=== PATIENT | female | born 1940 | race Caucasian/White ===

== ENCOUNTER 2017-02-22 07:47 | Day surgery (SDC) | payer MEDICARE, OTHER ==
[2017-02-16 10:33] LABS: ABSOLUTE EOSINOPHILS # (AUTO) 0.2 10^3/uL (0.0-0.6); ABSOLUTE LYMPHOCYTES (AUTO) 0.7 10^3/uL (0.5-4.7); ABSOLUTE MONOCYTES (AUTO) 0.6 10^3/uL (0.1-1.4); ABSOLUTE NEUT (AUTO) 4.7 10^3/uL (1.7-8.2); BASOPHILS % (AUTO) 0.7 % (0-2); EOSINOPHILS % (AUTO) 3.8 % (0-6); HEMOGLOBIN 12.9 g/dL (12.0-15.5); HGB HCT DIFFERENCE 0.7; LYMPHOCYTES % (AUTO) 11.7 % (13-45); MEAN CORPUSCULAR HEMOGLOBIN 30.3 pg (27.0-33.4); MEAN CORPUSCULAR VOLUME 89 fl (80-97); MONOCYTES % (AUTO) 9.3 % (3-13); RED BLOOD COUNT 4.26 10^6/uL (3.72-5.28); RED CELL DISTRIBUTION WIDTH 14.4 % (11.5-14.0); SEGMENTED NEUTROPHILS % (AUTO) 74.5 % (42-78); WHITE BLOOD COUNT 6.3 10^3/uL (4.0-10.5)
[2017-02-16 10:41] LABS: PARTIAL THROMBOPLASTIN TIME 27.4 SEC (23.5-35.8)
--- NOTE | 2017-02-17 00:08 | EKG REPORT ---
SEVERITY:- ABNORMAL ECG - SINUS RHYTHM FIRST DEGREE AV BLOCK : Confirmed by: Hilda Dey 17-Feb-2017 00:07:48
[2017-02-17 15:40] LABS: APPEARANCE,URINE CLOUDY; BILIRUBIN,URINE NEGATIVE (NEGATIVE); GLUCOSE, URINE NEGATIVE (NEGATIVE); KETONES,URINE NEGATIVE (NEGATIVE); LEUKOCYTE ESTERASE,URINE SMALL (NEGATIVE); NITRITE,URINE NEGATIVE (NEGATIVE); PROTEIN,URINE NEGATIVE (NEGATIVE); URINE SPECIFIC GRAVITY 1.011; UROBILINOGEN,URINE NEGATIVE mg/dL (<2.0)
[~2017-02-22 07:47] MED LIST: CEFAZOLIN 1 GM/D5W RTU 1 GM/50 ML RTUPB IV PRN; LACTATED RINGERS 1000 ML IV PRN
[2017-02-22] MEDS ORDERED: LIDOCAINE 1% INJ-PF (10 MG/ML) 30 ML SDV ONE (08:36)
[2017-02-22] MEDS ORDERED: TRIAMCINOLONE ACETONIDE INJ 40 MG/1 ML VIAL ONE ×2 (08:37)
[2017-02-22] MEDS ORDERED: BUPIVACAINE HCL 0.25 % INJ/PF (2.5 MG/1 ML) 30 ML VIAL ONE (08:37)
[2017-02-22] MEDS ORDERED: LIDOCAINE 2% INJ-PF (20 MG/ML) 10 ML AMPUL ONE (09:20)
[2017-02-22] MEDS ORDERED: KETAMINE HCL INJ 500 MG/10 ML VIAL ONE (09:20)
[2017-02-22] MEDS ORDERED: MIDAZOLAM 2 MG/2 ML INJ ONE (09:21)
[2017-02-22] MEDS ORDERED: FENTANYL CITRATE INJ/PF 100 MCG/2 ML AMPUL ONE (09:21)
[2017-02-22] MEDS ORDERED: ONDANSETRON HCL INJ/PF 4 MG/2 ML SDV ONE (09:21)
[2017-02-22] MEDS ORDERED: PROPOFOL INJ 200 MG/20 ML VIAL IV ONE (09:21)
[2017-02-22] MEDS ORDERED: BUPIVACAINE HCL 0.25% /EPINEPHRINE INJ/PF 30 ML SDV ONE (09:31)
[2017-02-22] MEDS ORDERED: METHYLPREDNISOLONE ACETATE INJ 40 MG/1 ML ML ONE (09:31)
[2017-02-22] MEDS ORDERED: FENTANYL CITRATE INJ/PF 100 MCG/2 ML AMPUL IV PRN ×3 (10:23)
[2017-02-22] MEDS ORDERED: DIPHENHYDRAMINE HCL 50 MG/ML VIAL IV PRN (10:23)
[2017-02-22] MEDS ORDERED: PROMETHAZINE HCL INJ 25 MG/1 ML VIAL IV PRN (10:23)
[2017-02-22] MEDS ORDERED: CEFAZOLIN INJ 1 GM VIAL ONE (10:55)
[2017-02-22] MEDS ORDERED: OXYCODONE-ACETAMINOPHEN 5-325 MG TABLET PO PRN (10:57)
[2017-02-22] MEDS: FENTANYL CITRATE INJ/PF 100 MCG/2 ML AMPUL ONE ×2 (11:01→11:11)
--- NOTE | 2017-02-22 11:18 | OPERATIVE REPORT E ---
Operative Report NAME: INES LONDONO : 1940 AGE: 76Y DATE OF SURGERY: 02/22/2017 ROOM: PREOPERATIVE DIAGNOSIS: Lumbar spinal stenosis with neurogenic claudication and intractable pain. POSTOPERATIVE DIAGNOSIS: Lumbar spinal stenosis with neurogenic claudication and intractable pain. OPERATIVE PROCEDURE: L2-3 lumbar MILD procedure under fluoroscopic followed by lumbar epidural steroid injection. SURGEON: VALERIE CORONADO M.D. REPLENISHMENT ASSOCIATE: Dr. David Smith ANESTHESIA: MAC. BLOOD LOSS: 10 mL. TISSUE OR SPECIMEN REMOVED: Lumbar epidural ligament as well as laminar bone at the right left 2-3 levels. INDICATIONS: Intractable pain associated with neurogenic claudication and marked lumbar spinal stenosis at the L2-3 level. COMPLICATIONS: None. PROCEDURE NOTE: After obtaining informed consent, advising the patient of the risks and benefits including serious neurological injury, bleeding, and infection followed by poor response to the treatment, aggravation of pain, paralysis, allergic reaction and , she was taken to the operating room and placed comfortably in the prone position. She was prepped and draped in the usual fashion with chlorhexidine followed by Ioban draping system. The spine was evaluated under fluoroscopic guidance. The L2-3 level was identified by counting down from the ribs and up from the sacrum. A suitable entrance site for the epidural needle was utilized. The epidural needle was entered near the midline location at the 2-3 level with loss of resistance to saline technique. No heme, thrill, or sign of paresthesias were noted. Epidurogram was performed using Isovue-200. Approximately 3-4 mL were spread primarily cephalad in a thin trailing edge at the affected level and the distal levels 3-4. Sites for the MILD trocar were then selected above the L5 region. These were anesthetized with 1% lidocaine with bicarb followed by anesthetization of subcutaneous tissue and periosteal tissues at 2-3. Beginning on the left side, MILD trocar was advanced down through the lamina. The levels were checked in the AP as well as the right anterior oblique view. This would appear to be satisfactory. The bone rongeur was then utilized, getting good segments of ligament and lamina at the superior and inferior edges. Epidurogram was improved with the addition of several mL of the Isovue-200. It demonstrated good improvement in spread at that level. Attention was then directed towards performing the same procedure on the right side with the right lateral approach in the left anterior oblique view. It was more difficult to obtain. The bone region ligament was removed. There was improved spread at this level as well. Upon that, the procedure was determined to be completed. Then 0.25% bupivacaine with epinephrine were injected followed by removal of the tubes and expressing of any of the serosanguineous fluid from the trocar tunneling sites. Sterile dressings were then placed over this to include Steri-Strip, 2 x 2, and bacitracin dressing followed by OpSite. The patient was then taken to the PACU for further postoperative care and monitoring. DICTATING PHYSICIAN: VALERIE CORONADO M.D. [id number] PHY#: [id number] ID: [id number] JOB#: [id number] ACCT: [id number] cc:VALERIE CORONADO M.D. >
--- NOTE | 2017-02-22 13:45 | RADIOLOGY REPORT (SQ) ---
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 FLUOROSCOPY TIME: 6 minutes 18 images saved to PACS. TECHNIQUE: Intra-operative images acquired during surgical procedure to evaluate progress. NUMBER OF IMAGES: 18 digital fluoro images LIMITATIONS: None. FINDINGS: Intra procedural imaging and fluoro for Dr. Baltazar during spine procedure IMPRESSION: Intra procedural imaging and fluoro COMMENT: Quality ID [id number]: Final reports for procedures using fluoroscopy that document radiation exp osure indices, or exposure time and number of fluorographic images (if radiation exposure indices are not available) Please consult full operative report of the attending physician for description of the procedure. TECHNICAL DOCUMENTATION: JOB ID: [id number] [employer]- All Rights Reserved
--- NOTE | 2017-02-22 13:45 | RADIOLOGY REPORT (SQ) ---
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 FLUOROSCOPY TIME: 6 minutes 18 images saved to PACS. TECHNIQUE: Intra-operative images acquired during surgical procedure to evaluate progress. NUMBER OF IMAGES: 18 digital fluoro images LIMITATIONS: None. FINDINGS: Intra procedural imaging and fluoro for Dr. Baltazar during spine procedure IMPRESSION: Intra procedural imaging and fluoro COMMENT: Quality ID [id number]: Final reports for procedures using fluoroscopy that document radiation exp osure indices, or exposure time and number of fluorographic images (if radiation exposure indices are not available) Please consult full operative report of the attending physician for description of the procedure. TECHNICAL DOCUMENTATION: JOB ID: [id number] [employer]- All Rights Reserved
[2017-02-22 14:48] VITALS: BP 164/75
== END 2017-02-22 13:20 | disposition home or self-care (01) ==
LOC: OROUT 07:47
PROVIDERS: ATTEND Pain Medicine Interventional Pain Medicine
PROC: 01NB3ZZ Release Lumbar Nerve, Percutaneous Approach (ICD-10-PCS; principal; 2017-02-22 10:00)
DX: M48.062 Spinal stenosis, lumbar region with neurogenic claudication (principal); Z00.6 Encounter for examination for normal comparison and control in clinical research program; M47.816 Spondylosis without myelopathy or radiculopathy, lumbar region; G89.4 Chronic pain syndrome; E78.00 Pure hypercholesterolemia, unspecified; M19.90 Unspecified osteoarthritis, unspecified site; E11.9 Type 2 diabetes mellitus without complications; M51.36 Other intervertebral disc degeneration, lumbar region; M51.26 Other intervertebral disc displacement, lumbar region; M79.1 Myalgia; Z79.01 Long term (current) use of anticoagulants; Z79.899 Other long term (current) drug therapy; Z79.1 Long term (current) use of non-steroidal anti-inflammatories (NSAID); Z79.82 Long term (current) use of aspirin
CPT/HCPCS: 0275T; 93005; 36415; 82962; 85025; 85610; 85730; 81001; 72100; 93010; Q9966; J2250; J3490 ×4; J0690 ×2; J3010; J1020; A9270; J2405; J2704; 630